=== PATIENT | female | born 1995 | race Caucasian/White ===

== ENCOUNTER 2023-05-03 16:37 | Emergency (ER) | payer BC, SELFPAY ==
[2023-05-03 16:44] VITALS: BP 117/88; PULSE 73; RESP 22; TEMP 36.4; O2SAT 100
--- NOTE | 2023-05-03 18:50 | ECG_ITS ---
Measurements Intervals [place] Rate: 65 P: -16 MS: 135 QRS: 69 QRSD: 82 T: 21 QT: 396 QTc: 413 Interpretive Statements SINUS RHYTHM WITH SINUS ARRHYTHMIA NORMAL ECG NO PREVIOUS ECG AVAILABLE FOR COMPARISON Electronically Signed On 05-04-2023 9:18:31 CDT by Grady Harris M.D.
--- NOTE | 2023-05-03 18:50 | ED.ANXIETY ---
HPI - Anxiety General Chief Complaint: Anxiety <Whit Flores PA-C - Last Filed: 05/04/23 02:38> Stated Complaint: panic attacks <Whit Flores PA-C - Last Filed: 05/04/23 02:38> Time Seen by Provider: 05/03/23 18:20 <Whit Flores PA-C - Last Filed: 05/04/23 02:38> History of Present Illness HPI narrative: 28-year-old female reports for evaluation for episodes of carpopedal spasms, crying, convulsing , tingling throughout her body since yesterday. Patient states yesterday [place], and she began developing the symptoms. States she went to the medical unit on the cruise ship and had her vitals taken. States at that time she began developing carpopedal spasms and was convulsing and began crying and hyperventilating. States they had her breathing to a mask which improved her symptoms. Patient states today she had the symptoms start to develop again and went to urgent care who sent her to the ED. She states while in the waiting room, she began to feel tingling all over her body, shaking, and hyperventilating. States the symptoms have since resolved. On my evaluation, she says she feels back to baseline other than mild lightheadedness. She states she has never lost consciousness during these convulsions . She does report increased stressors including starting her new semester of school, her boyfriend's uncle just passing away within the past week, and being a bit of water in her breast and sweating. She denies SI/HI or depression. She has not seen a PCP regarding these issues. She denies current chest pain, shortness of breath, abdominal pain, nausea or vomiting, recent URI, neck pain or back pain, syncope, fever, focal numbness or weakness, vision changes, head injury. <Whit Flores PA-C - Last Filed: 05/04/23 02:38> Related Data Allergies/Adverse Reactions: Allergies Allergy/AdvReac Type Severity Reaction Status Date / Time No Known Allergies Allergy Unverified 12/10/18 15:44 <Whit Flores PA-C - Last Filed: 05/04/23 02:38> Review of Systems Review of Systems: CONSTITUTIONAL: Denies fever, chills EYES: Denies visual changes, redness, or discharge. ENT: Denies rhinorrhea, congestion, sore throat, or otalgia. CARDIOVASCULAR: Denies chest pain, palpitations, or edema. RESPIRATORY: Denies cough or dyspnea. GASTROINTESTINAL: Denies abdominal pain, nausea, vomiting, or diarrhea. GENITOURINARY: Denies dysuria or hematuria. SKIN: Denies rash or itching. MUSCULOSKELETAL: Denies back pain, joint pain, or myalgia. NEUROLOGIC: Denies headache, numbness, dizziness, or weakness. PSYCHIATRIC: See HPI <Whit Flores PA-C - Last Filed: 05/04/23 02:38> Exam Narrative: GENERAL: Well-appearing, in no acute distress. Patient resting comfortably in exam bed. She is pleasant and conversational. HEAD: Normocephalic EYES: PERRLA ENT: Nares clear. Mucous membranes moist. Oropharynx without tonsillar hypertrophy exudate or other lesions. NECK: Supple. CHEST: No respiratory distress. Clear to auscultation, no adventitious breath sounds. HEART: Regular rate and rhythm. No murmur heard. Normal peripheral pulses.. EXTREMITIES: Normal range of motion. No edema. SKIN: Warm, dry, no rash. NEURO: No focal deficits. Alert and oriented x3. Cranial nerves II through XII intact. Strength 5/5 in BUE and BLE. Sensation intact throughout. Patient ambulatory without difficulty. PSYCH: Normal mood and affect. <Whit Flores PA-C - Last Filed: 05/04/23 02:38> Course SERVER SERVICE ASSISTANT/PA Physician Supervision I did perform the medical decision making for this encounter. <Che Briggs MD - Last Filed: 05/04/23 19:44> Vital Signs Vital signs: Vital Signs Temperature 97.6 F 05/03/23 16:44 Pulse Rate 73 05/03/23 16:44 Respiratory Rate 22 H 05/03/23 16:44 Blood Pressure 117/88 05/03/23 16:44 Pulse Oximetry 100 05/03/23 16:44 Oxygen Delivery Room Air
[2023-05-03] MEDS: LORazepam (*CRX) 0.5 MG TABLET PO (19:05)
== END 2023-05-03 19:39 | disposition home or self-care (01) ==
PROVIDERS: Emergency Provider Physician Assistant
DX: F41.9 Anxiety disorder, unspecified (principal)
CPT/HCPCS: 93005; 99283; A9270